=== PATIENT | male | born 1975 | race Caucasian/White ===

== ENCOUNTER 2016-12-09 13:19 | Emergency (ER) | payer SELFPAY ==
[2016-12-09 15:16] LABS: Basophils % (Auto) 0.9 % (0.0-1.8); Eosinophils % (Auto) 3.2 % (0.0-4.3); Hematocrit 40.1 % (35.5-45.6); Hemoglobin 12.9 gm/dl (11.8-15.2); Mean Corpuscular HGB Conc 32 % (32-34); Mean Corpuscular Hemoglobin 28 pg (28-32); Mean Corpuscular Volume 85 fl (84-94); Platelet Count 195 K/mm3 (140-440); Red Blood Count 4.69 M/mm3 (3.65-5.03); Red Cell Distribution Width 15.3 % (13.2-15.2); White Blood Count 5.1 K/mm3 (4.5-11.0)
[2016-12-09 15:33] LABS: Alanine Aminotransferase 12 units/L (7-56); Albumin 3.8 g/dL (3.9-5); Albumin/Globulin Ratio 1.5 %; Alkaline Phosphatase 40 units/L (35-129); Anion Gap 17 mmol/L; BUN/Creatinine Ratio 4.61; Bilirubin,Total 0.5 mg/dL (0.1-1.2); Blood Urea Nitrogen 6 mg/dL (9-20); Calcium 8.9 mg/dL (8.4-10.2); Carbon Dioxide 24 mmol/L (22-30); Chloride 100.7 mmol/L (98-107); Glucose 91 mg/dL (75-100); Lipase 40 units/L (13-60); Sodium 138 mmol/L (137-145); Total Protein 6.4 g/dL (6.3-8.2)
--- NOTE | 2016-12-09 16:50 | Emergency Department Report ---
ED General Adult HPI - General Chief complaint: Abdominal Pain Stated complaint: ABD PAIN Time Seen by Provider: 12/09/16 15:29 Source: patient Mode of arrival: Ambulatory Limitations: No Limitations - History of Present Illness Initial comments: PT c/o rectal pain x 1 month. PT states the pain is intermittent. Worse after defecation. PT denies hx of same. PT reported abd pain in triage but denies abd pain at this time. MD Complaint: rectal pain Onset/Timin -: Gradual, month(s) Location: buttocks (rectally ) Radiation: non-radiation Severity scale (0 -10): 7 Quality: burning, other (intermittent ) Worsens with: other (BM ) Associated Symptoms: denies: fever/chills, loss of appetite, malaise, nausea/ vomiting Treatments Prior to Arrival: none - Related Data Previous Rx's Medication Instructions Recorded Last Taken Type Docusate Sodium [Colace] 100 mg PO BID #14 capsule 12/09/16 Unknown Rx Hydrocortisone/Pramoxine 10 gm RC TID PRN #1 foam 12/09/16 Unknown Rx [Proctofoam-Hc Foam] Allergies Allergy/AdvReac Type Severity Reaction Status Date / Time No Known Allergies Allergy Unverified 12/09/16 14:45 ED Review of Systems ROS: Stated complaint: ABD PAIN Other details as noted in HPI Comment: All other systems reviewed and negative Constitutional: no symptoms reported. denies: fever Gastrointestinal: as per HPI. denies: abdominal pain, nausea, vomiting Genitourinary: denies: urgency, dysuria, hematuria ED Past Medical Hx - Past Medical History Previous Medical History?: No - Surgical History Additional Surgical History: RIGHT ANKLE SURGERY - Social History Smoking Status: Former Smoker Substance Use Type: None - Medications Home Medications: Home Medications Medication Instructions Recorded Confirmed Last Taken Type Docusate Sodium [Colace] 100 mg PO BID #14 capsule 12/09/16 Unknown Rx Hydrocortisone/Pramoxine 10 gm RC TID PRN #1 foam 12/09/16 Unknown Rx [Proctofoam-Hc Foam] ED Physical Exam - General Limitations: No Limitations General appearance: alert, in no apparent distress - Head Head exam: Present: atraumatic, normocephalic, normal inspection - Eye Eye exam: Present: normal appearance. Absent: conjunctival injection - ENT ENT exam: Present: normal exam, normal external ear exam - Neck Neck exam: Present: normal inspection. Absent: tenderness - Respiratory Respiratory exam: Present: normal lung sounds bilaterally. Absent: respiratory distress, wheezes, chest wall tenderness - Cardiovascular Cardiovascular Exam: Present: regular rate, normal rhythm, normal heart sounds - GI/Abdominal GI/Abdominal exam: Present: soft, normal bowel sounds. Absent: tenderness - Rectal Rectal exam: Present: hemorrhoids (ext hemorrhoid), other - Extremities Exam Extremities exam: Present: normal inspection, full ROM. Absent: tenderness, normal capillary refill - Back Exam Back exam: Present: normal inspection, full ROM - Neurological Exam Neurological exam: Present: alert, oriented X3 - Psychiatric Psychiatric exam: Present: normal affect, normal mood - Skin Skin exam: Present: warm, dry, intact, normal color ED Course Vital Signs 12/09/16 12/09/16 14:46 17:07 Temperature 98.4 F 97.8 F Pulse Rate 78 72 Respiratory 16 16 Rate Blood Pressure 131/82 Blood Pressure 128/80 [Right] O2 Sat by Pulse 98 100 Oximetry - Reevaluation(s) Reevaluation #1: 12/09/16 16:51 PT aware of abnormal PE findings and plan of care. PT has no questions at this time. - Pulse Oximetry Interpretation Digit-Finger Initial Pulse Oximetry Readin Actions Taken: none ED Medical Decision Making - Lab Data Result diagrams: 12/09/16 14:56 12/09/16 14:56 - Differential Diagnosis gerd, constipation, hemorrhoid Critical care attestation.: If time is entered above; I have spent that time in minutes in the direct care of this critically ill patient, excluding procedure time. ED Disposition Clinical Impression: External hemorrhoid Disposition: DISCHARGED TO HOME OR SELFCARE Is pt being admited?: No Does the pt Need Aspirin: No Condition: Stable Instructions: Hemorrhoids (ED) Additional Instructions: Avoid straining to have bm Prescriptions: Docusate Sodium [Colace] 100 mg PO BID #14 capsule Hydrocortisone/Pramoxine [Proctofoam-Hc Foam] 10 gm RC TID PRN #1 foam PRN Reason: Itching Referrals: PRIMARY CARE, [Primary Care Provider] - 3-5 Days HIMA FAUST MD, PHD [Staff Physician] - 3-[address] [facility] [Outside] - 3-5 Days [facility] [Outside] - 3-5 Days [facility] [Provider Group] - 3-5 Days Forms: Work/School Release Form(ED) Time of Disposition: 16:54
[2016-12-09 17:08] VITALS: BP 128/80
== END 2016-12-09 17:35 | disposition home or self-care (01) ==
LOC: ED 13:19
DX: K64.4 Residual hemorrhoidal skin tags (principal); Z87.891 Personal history of nicotine dependence
CPT/HCPCS: 36415; 80053; 83690; 85025; 99283